=== PATIENT | male | born 1985 | race Caucasian/White ===

== ENCOUNTER 2021-04-09 11:39 | Emergency (ER) | payer SELFPAY ==
[~2021-04-09] VITALS: Ht 177.8 cm; Wt 95.4 kg
[2021-04-09] MEDS ORDERED: IV NORMAL SALINE 1000ML BAG 1,000 ML IV ONE (12:15)
[2021-04-09] MEDS ORDERED: ONDANSETRON PF 4 MG/2 ML VIAL. IVP ONE (12:15)
[2021-04-09] MEDS ORDERED: MORPHINE SULFATE 4 MG/ML INJ. IVP ONE (12:15)
[2021-04-09] MEDS ORDERED: IOHEXOL 300 MG/ML 100ML VIAL. IV ONE (12:30)
[2021-04-09] MEDS ORDERED: CONTRAST GIVEN. MC PRN (12:45)
[2021-04-09 13:05] LABS: BASO % 1 % (0-3); EOS # 0.1 x10^3/uL (0.0-0.7); EOS % 2 % (0-3); HEMATOCRIT 39.7 % (39.0-53.0); HEMOGLOBIN 13.5 g/dL (13.0-17.5); LYMPH % 50 % (24-48); MEAN CORPUSCULAR HEMOGLOBIN 31 pg (25-35); MEAN CORPUSCULAR HGB CONC 34 g/dL (31-37); MEAN CORPUSCULAR VOLUME 90 fL (79-100); MONO # 0.6 x10^3/uL (0.0-1.1); MONO % 7 % (0-9); NEUT # 3.3 x10^3/uL (1.8-7.7); NEUT % 41 % (31-73); PLATELET COUNT 214 x10^3/uL (140-400); RED CELL DISTRIBUTION WIDTH 13.2 % (11.5-14.5); WHITE BLOOD COUNT 7.9 x10^3/uL (4.0-11.0)
[2021-04-09 13:12] LABS: CALCIUM 8.9 mg/dL (8.5-10.1); CREATININE 0.8 mg/dL (0.7-1.3); GFR 110.7; POTASSIUM 4.3 mmol/L (3.5-5.1)
[2021-04-09 13:24] LABS: ALBUMIN 3.9 g/dL (3.4-5.0); ALBUMIN/GLOBULIN RATIO 1.2 (1.0-1.7); MAGNESIUM 2.1 mg/dL (1.8-2.4); TOTAL BILIRUBIN 0.4 mg/dL (0.2-1.0); TOTAL PROTEIN 7.2 g/dL (6.4-8.2)
--- NOTE | 2021-04-09 14:42 | RAD ---
CT ABDOMEN+PELVIS W History: Reason: abd pain / Spl. Instructions: omni 300 75ml / History: Technique: After the administration of intravenous contrast, CT imaging was performed of the abdomen and pelvis. Multiplanar images are reviewed. Exposure: One or more of the following individualized dose reduction techniques were utilized for thi s examination: 1. Automated exposure control 2. Adjustment of the mA and/or kV according to patient size 3. Use of iterative reconstruction technique. Comparison: None Findings: Lower chest: Tiny bilateral pleural effusions. Abdomen and pelvis: Hypodensity within the spleen measures 1.6 cm. Small right inferior hepatic hypod ensity measures 0.9 cm. The adrenal glands, pancreas and gallbladder are unremarkable. No biliary courtney louann dilatation. No renal calculus. No hydronephrosis. Decompressed urinary bladder. Mild colonic diverticulosis. Decompressed distal colon and rectum. Normal appendix. No evidence of ever wel obstruction. No pathologic lymphadenopathy. No ascites. Minimal pelvic free fluid. No pathologic lymphadenopathy. Bones: Small sclerotic lesion within the left posterior ilium, likely bone island. Impression: 1. No acute abdominal or pelvic pathology. 2. Tiny bilateral pleural effusions. 3. Minimal free fluid within the pelvis. 4. Small splenic and hepatic hypodensities, may represent cysts and/or hemangiomas. Electronically signed by: Ravin Will DO (04/09/2021 2:39 PM) [id number]
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
[2021-04-09 15:02] VITALS: BP 115/67
== END 2021-04-09 15:05 | disposition home or self-care (01) ==
LOC: ER 11:39
DX: R10.12 Left upper quadrant pain (principal); F17.200 Nicotine dependence, unspecified, uncomplicated; Z88.8 Allergy status to other drugs, medicaments and biological substances
CPT/HCPCS: 36415; 74177; 80053; 83690; 83735; 85025; 96361; 96374; 96375; 99285; J2270; J2405; J7030; Q9967